=== PATIENT | female | born 1995 | race Two or more races ===

== ENCOUNTER 2023-01-05 20:35 | Emergency (ER) | payer OTHER ==
[~2023-01-05] VITALS: Ht 154.9 cm; Wt 108.9 kg
--- NOTE | 2023-01-05 21:49 | NUR ---
pATIENT AMBULATED INTO ROOM #4, INFORMED OF PLAN OF CARE, NO S/S OF ANY DISTRESS NOTED, WILL CONTINUE TO MONITOR. PATIENT HAS BEEN SEEN BY THE ER PROVIDER.
--- NOTE | 2023-01-05 22:30 | NUR ---
RESTING, NO CHANGE IN PRIMARY ASSESSMENT.
[2023-01-05] MEDS ORDERED: ONDANSETRON HCL 4 MG TABLET ONE ×2 (22:35→22:37)
[2023-01-05] MEDS ORDERED: IBUPROFEN 800 MG TABLET ONE (22:35)
[2023-01-05] MEDS ORDERED: IBUPROFEN 600 MG TABLET ONE (22:37)
[2023-01-05] MEDS ORDERED: ONDANSETRON ODT 4 MG TAB.RAPDIS SL ONE (22:45)
[2023-01-05] MEDS ORDERED: IBUPROFEN 600 MG TABLET PO ONE (22:45)
--- NOTE | 2023-01-05 22:45 | NUR ---
PATIENT MEDICATED PER ORDER FOR C/O PAIN AND NAUSEA, CONTINUES TO AWAIT RESULTS.
[2023-01-05] MEDS ORDERED: CYCL10TA9 PO (23:07)
[2023-01-05] MEDS ORDERED: NAPR-1164 PO (23:07)
--- NOTE | 2023-01-05 23:20 | NUR ---
ACI GIVEN, REMAINS STABLE FOR DISCHARGE. INFORMED TO CALL IN A.M. FOR CT RESULTS.
[2023-01-05 23:21] VITALS: BP 122/93
== END 2023-01-05 23:22 | disposition home or self-care (01) ==
LOC: ER 20:45
DX: S09.90XA Unspecified injury of head, initial encounter (principal); S29.9XXA Unspecified injury of thorax, initial encounter; S09.93XA Unspecified injury of face, initial encounter; V89.2XXA Person injured in unspecified motor-vehicle accident, traffic, initial encounter; Y93.89 Activity, other specified; Y92.89 Other specified places as the place of occurrence of the external cause; Y99.8 Other external cause status
CPT/HCPCS: 70450; 70486; 71045; A4663; Q0162